=== PATIENT | female | born 1950 | race Asian ===

== ENCOUNTER 2016-07-01 12:51 | Emergency (ER) | payer BC ==
[~2016-07-01] VITALS: Wt 78.0 kg
[~2016-07-01 12:51] MED LIST: FLUT16SP17 NASAL; LORA10TA3 PO
[2016-07-01 13:42] LABS: URINE BLOOD (Dip) POC 3+ (NEGATIVE)
[2016-07-01] MEDS ORDERED: CEPH-443 PO (13:54)
[2016-07-01] MEDS ORDERED: PHEN-537 PO (13:55)
[2016-07-01] MEDS ORDERED: LIDOCAINE 1% (MDV) 20 ML INJ SC ONE (14:00)
[2016-07-01] MEDS ORDERED: CEFTRIAXONE 1 GM INJ IM ONE (14:00)
[2016-07-01] MEDS ORDERED: ACETAMINOPHEN 325 MG TAB PO ONE (14:00)
[2016-07-01 14:05] LABS: ADD UMIC YES; URINE BILIRUBIN (Dip) NEGATIVE (NEGATIVE); URINE BLOOD (Dip) 3+ (NEGATIVE); URINE COLOR LT. YELLOW (YELLOW); URINE GLUCOSE (Dip) NEGATIVE (NEGATIVE); URINE KETONES (Dip) NEGATIVE (NEGATIVE); URINE LEUKOCYTE ESTERASE (Dip) 2+ (NEGATIVE); URINE NITRITE (Dip) NEGATIVE (NEGATIVE); URINE TOTAL PROTEIN (Dip) TRACE (NEGATIVE); URINE UROBILINOGEN (Dip) 0.2 E.U./dL (0.1-1.0)
[2016-07-01 14:25] VITALS: BP 139/76; PULSE 77; RESP 18; TEMP 98.4
--- NOTE | 2016-07-01 14:28 | ERD ---
ER Documentation Chief Complaint Date/Time DATE: 07/01/16 TIME: 14:16 Chief Complaint dysuria x 1 day HPI This patient is a 58-year-old female with past medical history of type 2 diabetes, hypertension, and urinary tract infection presenting to the emergency department for frequent urination and dysuria for 1 day. She reports burning on urination and chills. Symptoms are aggravated with urination. Is taken no medication at home for relief of symptoms. The patient denies fevers, nausea, vomiting, diarrhea, or other symptoms at this time. ROS All systems reviewed and are negative except as per history of present illness. Medications Home Meds Active Scripts Phenazopyridine Hcl* (Pyridium*) 100 Mg Tab, 100 MG PO TID Y for URINARY PAIN, # 6 TAB Prov:ALZ HUFFMAN PA-C 07/01/16 Cephalexin* (Keflex*) 500 Mg Capsule, 500 MG PO QID for 7 Days, #28 CAP Prov:LAZ HUFFMAN PA-C 07/01/16 Fluticasone Propionate* (Fluticasone Propionate* Nasal) 50 Mcg/[place] - 16 Gm [place].susp, 1 SPRAY NASAL BID, #1 EA TO EACH NOSTRIL Prov:YAMILA MIGUEL PA-C 10/08/14 Loratadine* (Loratadine*) 10 Mg Tablet, 10 MG PO DAILY, #30 TAB Prov:YAMILA MIGUEL PA-C 10/08/14 Allergies Allergies: Coded Allergies: No Known Allergy (Unverified , 07/01/16) PMhx/Soc Hx Alcohol Use: No Hx Substance Use: No Hx Tobacco Use: No FmHx Noncontributory for chief complaint Physical Exam Vitals Vital Signs Date Time Temp Pulse Resp B/P Pulse Ox O2 Delivery O2 Flow Rate FiO2 07/01/16 14:25 98.4 77 18 139/76 99 Room Air 07/01/16 12:58 98.0 91 18 147/78 99 Physical Exam Const: The patient is resting comfortably in no acute distress. Head: Atraumatic Eyes: Normal Conjunctiva ENT: Normal External Ears, Nose and Mouth. Neck: Full range of motion..~ No meningismus. Resp: Clear to auscultation bilaterally Cardio: Regular rate and rhythm, no murmurs Abd: Soft, non tender, non distended. Normal bowel sounds Skin: No petechiae or rashes Back: No midline or flank tenderness Ext: No cyanosis, or edema Neur: Awake and alert Psych: Normal Mood and Affect Results 24 hrs Laboratory Tests Test 07/01/16 13:44 07/01/16 13:50 Bedside Urine pH (LAB) 5.0 Bedside Urine Protein (LAB) 2+ Bedside Urine Glucose (UA) Negative Bedside Urine Ketones (LAB) Negative Bedside Urine Blood 3+ Bedside Urine Nitrite (LAB) Negative Bedside Urine Leukocyte Esterase (L 2+ Urine Color LT. YELLOW Urine Clarity CLEAR Urine pH 6.0 Urine Specific [place] <=1.005 Urine Ketones NEGATIVE Urine Nitrite NEGATIVE Urine Bilirubin NEGATIVE Urine Urobilinogen 0.2 E.U./dL Urine Leukocyte Esterase 2+ Urine Microscopic RBC 25-50/HPF Urine Microscopic WBC 25-50/HPF Urine Epithelial Cells FEW Urine Bacteria MODERATE Urine Hemoglobin 3+ Urine Glucose NEGATIVE% Urine Total Protein TRACE Current Medications Medications (Trade) Dose Ordered Sig/Ani Route PRN Reason Start Time Stop Time Status Last Admin Dose Admin Ceftriaxone Sodium (Rocephin) 1 gm ONCE ONCE IM 07/01/16 14:00 07/01/16 14:01 DC 07/01/16 14:20 Lidocaine (Xylocaine 1% (Mdv) 20 ml) 20 ml ONCE ONCE SC 07/01/16 14:00 07/01/16 14:01 DC 07/01/16 14:21 Acetaminophen (Tylenol Tab) 650 mg ONCE ONCE PO 07/01/16 14:00 07/01/16 14:01 DC 07/01/16 14:15 Procedures/MDM 58-year-old female presents secondary to complaints of dysuria. On physical examination the patient's blood pressure was found to be slightly elevated at 147/78. Patient's blood pressure was elevated (>120/80) but appears stable without evidence of hypertension emergency or urgency. The patient was counseled about the risks of hypertension and urged to pursue outpatient monitoring and therapy within a week with their primary care physician. Urine dip is concerning for urinary tract infection with possible early pyelonephritis. The patient was treated in the department with 1 g Rocephin IM and p.o. Tylenol. On repeat evaluation the patient is feeling improved. The patient is stable for outpatient management with a prescription for Keflex and Pyridium. The patient was given strict ER return precautions and she demonstrates good understanding. The patient agreed with the discharge plan of diagnosis. All questions and concerns were addressed. At this time I have low suspicion for sepsis or other emergent conditions. The patient is to have close follow-up with the primary care physician within 1-2 days. Departure Diagnosis: Primary Impression: Urinary tract infection Urinary tract infection type: site unspecified Hematuria presence: without hematuria Qualified Code: N39.0 - Urinary tract infection without hematuria, site unspecified Condition: Fair Patient Instructions: Understanding Urinary Tract Infections (UTIs) Referrals: [facility], [facility] YOU HAVE RECEIVED A MEDICAL SCREENING EXAM AND THE RESULTS INDICATE THAT YOU DO NOT HAVE A CONDITION THAT REQUIRES URGENT TREATMENT IN THE EMERGENCY DEPARTMENT. FURTHER EVALUATION AND TREATMENT OF YOUR CONDITION CAN WAIT UNTIL YOU ARE SEEN IN YOUR DOCTORS OFFICE WITHIN THE NEXT 1-2 DAYS. IT IS YOUR RESPONSIBILITY TO MAKE AN APPOINTMENT FOR FOLOW-UP CARE. IF YOU HAVE A PRIMARY DOCTOR --you should call your primary doctor and schedule an appointment IF YOU DO NOT HAVE A PRIMARY DOCTOR YOU CAN CALL OUR PHYSICIAN REFERRAL HOTLINE AT IF YOU CAN NOT AFFORD TO SEE A PHYSICIAN YOU CAN CHOSE FROM THE FOLLOWING [facility] [id number] [facility]. [facility] [address] [facility]. [facility] [address] [facility]. [facility] [address] [facility]. [facility] [address] [facility]. [facility]. [address] Additional Instructions: Follow up with your PCP within the next 1-3 days for a more thorough evaluation and a possible referral to a specialist. Return the the emergency department immediately if symptoms worsen or change. If you have any questions regarding medications, ask your pharmacist or us before you leave. If any adverse reactions, occur while taking your medications, discontinue the treatment and return to the emergency department immediately. If any new or worsening symptoms, uncontrolled fevers, or other unexplained symptoms occur, return to the emergency department immediately. Take your medications as directed, and complete the entire course of treatment. LAZ HUFFMAN PA-C July 01, 2016 14:27
[2016-07-01 14:34] LABS: BACTERIA,URINE MODERATE; URINE RBCS 25-50 /HPF (0)
== END 2016-07-01 14:25 | disposition home or self-care (01) ==
LOC: FTE 12:51
DX: N39.0 Urinary tract infection, site not specified (principal)
CPT/HCPCS: 81001; 87086; 96372; 99284; J0696; Z7610; 81003